=== PATIENT | male | born 1955 | race Caucasian/White ===

== ENCOUNTER 2018-03-10 13:28 | Emergency (ER) | payer OTHER ==
--- NOTE | 2018-03-10 14:36 | ED ---
General Adult HPI - General Chief complaint: Dizziness Stated complaint: Chest pain Time Seen by Provider: 03/10/18 13:30 Source: patient, RN notes reviewed Mode of arrival: wheelchair Limitations: no limitations - History of Present Illness Initial comments: This is a 63-year-old male presents emergency department stating that he comes in today because every time he stands up he is very dizzy. Patient states it started yesterday morning has continued on until today. Patient states he did have some sharp chest pain he states it felt like electroshock below his breasts on the left and radiated to the right it lasts about one second. Patient states she's had about 4 of those over a five-minute period and has never had any since per patient denies any difficulty breathing or shortness of breath per patient any palpitations. Patient denies abdominal pain patient denies nausea vomiting or diarrhea. Patient states she's very unsteady. Moves his head or stands up. Patient denies any history of vertigo. Patient denies headache patient denies any numbness or weakness. Patient denies any visual disturbance or speech disturbance. - Related Data Previous Rx's Medication Instructions Recorded Meclizine [Antivert] 25 mg PO TID #20 tab 03/10/18 Allergies Allergy/AdvReac Type Severity Reaction Status Date / Time No Known Allergies Allergy Verified 03/10/18 13:58 Review of Systems ROS Statement: Those systems with pertinent positive or pertinent negative responses have been documented in the HPI. ROS Other: All systems not noted in ROS Statement are negative. Past Medical History Past Medical History: No Reported History History of Any Multi-Drug Resistant Organisms: None Reported Past Surgical History: Orthopedic Surgery Additional Past Surgical History / Comment(s): hand Past Psychological History: No Psychological Hx Reported Smoking Status: Current every day smoker Past Alcohol Use History: None Reported Past Drug Use History: None Reported General Exam - General Exam Comments Initial Comments: GENERAL: Patient is well-developed and well-nourished. Patient is nontoxic and well- hydrated and is in mild distress. ENT: Neck is soft and supple. No significant lymphadenopathy is noted. Oropharynx is clear. Moist mucous membranes. Neck has full range of motion without eliciting any pain. EYES: The sclera were anicteric and conjunctiva were pink and moist. PULMONARY: Unlabored respirations. Good breath sounds bilaterally. No audible rales rhonchi or wheezing was noted. CARDIOVASCULAR: There is a regular rate and rhythm without any murmurs gallops or rubs. ABDOMEN: Soft and nontender with normal bowel sounds. No palpable organomegaly was noted. There is no palpable pulsatile mass. SKIN: Skin is clear with no lesions or rashes and otherwise unremarkable. NEUROLOGIC: Patient is alert and oriented x3. Cranial nerves II through XII are grossly intact. Motor and sensory are also intact. Normal speech, volume and content. Symmetrical smile. Cerebellar testing finger to nose bilaterally was normal MUSCULOSKELETAL: Normal extremities with adequate strength and full range of motion. No lower extremity swelling or edema. No calf tenderness. LYMPHATICS: No significant lymphadenopathy is noted PSYCHIATRIC: Normal psychiatric evaluation. Limitations: no limitations Course Vital Signs 03/10/18 03/10/18 03/10/18 13:33 14:00 16:00 Temperature 97.8 F Pulse Rate 63 59 L 67 Respiratory 18 19 18 Rate Blood Pressure 128/80 124/78 115/76 O2 Sat by Pulse 98 98 95 Oximetry 03/10/18 16:49 Temperature 98.8 F Pulse Rate Respiratory Rate Blood Pressure O2 Sat by Pulse Oximetry Medical Decision Making - Medical Decision Making EKG shows sinus bradycardia at a rate of 53 bpm MO interval is 132 QRS is 94 Q- T intervals 416 QTC is 390 per patient's EKG shows no ST segment elevation or depression or T wave abnormalities are noted. CT of the brain shows no acute abnormality. Chest x-ray shows no acute abnormality. Patient had Antivert and was able to ambulate but still felt a little dizzy but he did feel somewhat improved. - Lab Data Result diagrams: 03/10/18 13:55 03/10/18 13:55 Lab Results 03/10/18 03/10/18 03/10/18 Range/Units 13:55 13:55 13:55 WBC 6.1 (3.8-10.6) k/uL RBC 5.44 (4.30-5.90) m/uL Hgb 16.2 (13.0-17.5) gm/dL Hct 47.5 (39.0-53.0) % MCV 87.3 (80.0-100.0) fL MCH 29.7 (25.0-35.0) pg MCHC 34.1 (31.0-37.0) g/dL RDW 13.8 (11.5-15.5) % Plt Count 214 (150-450) k/uL Neutrophils % 60 % Lymphocytes % 28 % Monocytes % 6 % Eosinophils % 1 % Basophils % 1 % Neutrophils # 3.6 (1.3-7.7) k/uL Lymphocytes # 1.7 (1.0-4.8) k/uL Monocytes # 0.4 (0-1.0) k/uL Eosinophils # 0.1 (0-0.7) k/uL Basophils # 0.0 (0-0.2) k/uL PT (9.0-12.0) sec INR (<1.2) APTT (22.0-30.0) sec Sodium 138 (137-145) mmol/L Potassium 4.8 (3.5-5.1) mmol/L Chloride 105 (98-107) mmol/L Carbon Dioxide 27 (22-30) mmol/L Anion Gap 6 mmol/L BUN 17 (9-20) mg/dL Creatinine 0.95 (0.66-1.25) mg/dL Est GFR (CKD-EPI)AfAm >90 (>60 ml/min/1.73 sqM) Est GFR (CKD-EPI)NonAf 86 (>60 ml/min/1.73 sqM) Glucose 94 (74-99) mg/dL Calcium 9.1 (8.4-10.2) mg/dL Magnesium 2.0 (1.6-2.3) mg/dL Total Bilirubin 0.5 (0.2-1.3) mg/dL AST 27 (17-59) U/L ALT 26 (21-72) U/L Alkaline Phosphatase 53 (38-126) U/L Total Creatine Kinase 139 (55-170) U/L CK-MB (CK-2) 1.8 (0.0-2.4) ng/mL CK-MB (CK-2) Rel Index 1.3 Troponin I <0.012 (0.000-0.034) ng/mL Total Protein 7.2 (6.3-8.2) g/dL Albumin 4.2 (3.5-5.0) g/dL 03/10/18 Range/Units 13:55 WBC (3.8-10.6) k/uL RBC (4.30-5.90) m/uL Hgb (13.0-17.5) gm/dL Hct (39.0-53.0) % MCV (80.0-100.0) fL MCH (25.0-35.0) pg MCHC (31.0-37.0) g/dL RDW (11.5-15.5) % Plt Count (150-450) k/uL Neutrophils % % Lymphocytes % % Monocytes % % Eosinophils % % Basophils % % Neutrophils # (1.3-7.7) k/uL Lymphocytes # (1.0-4.8) k/uL Monocytes # (0-1.0) k/uL Eosinophils # (0-0.7) k/uL Basophils # (0-0.2) k/uL PT 9.7 (9.0-12.0) sec INR 0.9 (<1.2) APTT 24.0 (22.0-30.0) sec Sodium (137-145) mmol/L Potassium (3.5-5.1) mmol/L Chloride (98-107) mmol/L Carbon Dioxide (22-30) mmol/L Anion Gap mmol/L BUN (9-20) mg/dL Creatinine (0.66-1.25) mg/dL Est GFR (CKD-EPI)AfAm (>60 ml/min/1.73 sqM) Est GFR (CKD-EPI)NonAf (>60 ml/min/1.73 sqM) Glucose (74-99) mg/dL Calcium (8.4-10.2) mg/dL Magnesium (1.6-2.3) mg/dL Total Bilirubin (0.2-1.3) mg/dL AST (17-59) U/L ALT (21-72) U/L Alkaline Phosphatase (38-126) U/L Total Creatine Kinase (55-170) U/L CK-MB (CK-2) (0.0-2.4) ng/mL CK-MB (CK-2) Rel Index Troponin I (0.000-0.034) ng/mL Total Protein (6.3-8.2) g/dL Albumin (3.5-5.0) g/dL Disposition Clinical Impression: Vertigo Disposition: HOME SELF-CARE Condition: Good Instructions: Vertigo (ED) Prescriptions: Meclizine [Antivert] 25 mg PO TID #20 tab Is patient prescribed a controlled substance at d/c from ED?: No Referrals: Dario Almanzar DO [Primary Care Provider] - 1-2 days Time of Disposition: 16:35
[2018-03-10] MEDS ORDERED: MECLIZINE 25 MG TAB PO STA (14:45)
[2018-03-10] MEDS ORDERED: SODIUM CHLORIDE 0.9% 500 ML 500 ML IV STA (14:45)
[2018-03-10 15:18] LABS: Basophils % (A) 1 %; Eosinophils # (A) 0.1 k/uL (0-0.7); Eosinophils % (A) 1 %; HCT 47.5 % (39.0-53.0); HGB 16.2 gm/dL (13.0-17.5); Lymphocytes # (A) 1.7 k/uL (1.0-4.8); Lymphocytes % (A) 28 %; MCH 29.7 pg (25.0-35.0); MCHC 34.1 g/dL (31.0-37.0); MCV 87.3 fL (80.0-100.0); Mean Platelet Volume 7.3; Monocytes # (A) 0.4 k/uL (0-1.0); Monocytes % (A) 6 %; Neutrophils # (A) 3.6 k/uL (1.3-7.7); Neutrophils % (A) 60 %; Platelet Count 214 k/uL (150-450); RBC 5.44 m/uL (4.30-5.90); RDW 13.8 % (11.5-15.5); WBC 6.1 k/uL (3.8-10.6)
[2018-03-10 15:26] LABS: ALT 26 U/L (21-72); AST 27 U/L (17-59); Albumin 4.2 g/dL (3.5-5.0); Alkaline Phosphatase 53 U/L (38-126); Anion Gap 6 mmol/L; Blood Urea Nitrogen 17 mg/dL (9-20); Calcium 9.1 mg/dL (8.4-10.2); Carbon Dioxide 27 mmol/L (22-30); Chloride 105 mmol/L (98-107); Glucose 94 mg/dL (74-99); Potassium 4.8 mmol/L (3.5-5.1); Sodium 138 mmol/L (137-145); Total Bilirubin 0.5 mg/dL (0.2-1.3); Total Protein 7.2 g/dL (6.3-8.2)
[2018-03-10 15:31] LABS: INR 0.9 (<1.2); Prothrombin Time 9.7 sec (9.0-12.0)
[2018-03-10 15:39] LABS: Creatine Kinase 139 U/L (55-170)
--- NOTE | 2018-03-10 15:41 | CT ---
EXAMINATION TYPE: CT brain wo con DATE OF EXAM: 03/10/2018 COMPARISON: Prior CT brain dated 11/26/2012 HISTORY: Dizziness CT DLP: 1060.4 mGycm Automated exposure control for dose reduction was used. FINDINGS: There is no interval change. IMPRESSION: NORMAL NONCONTRAST HEAD CT.
--- NOTE | 2018-03-10 15:43 | XR ---
EXAMINATION TYPE: XR chest 2V DATE OF EXAM: 03/10/2018 COMPARISON: CT chest 04/25/2013 HISTORY: Dizziness and chest pain TECHNIQUE: Frontal and lateral views of the chest are obtained. FINDINGS: There is no focal air space opacity, pleural effusion, or pneumothorax seen. The cardiac silhouette size is within normal limits. The osseous structures are intact. There is underlying emp hysema. Interstitium is prominent. There are overlying cardiac leads. Prominent lung volumes are note d consistent with COPD. IMPRESSION: No acute cardiopulmonary process. Emphysema.
[2018-03-10 15:52] LABS: Creatine Kinase MB 1.8 ng/mL (0.0-2.4); Troponin I <0.012 ng/mL (0.000-0.034)
[2018-03-10 16:12] VITALS: BP 115/76; PULSE 67; RESP 18
[2018-03-10 16:50] VITALS: TEMP 98.8
== END 2018-03-10 16:58 | disposition home or self-care (01) ==
LOC: EC 13:28
DX: R42 Dizziness and giddiness (principal); R07.9 Chest pain, unspecified; R00.1 Bradycardia, unspecified; F17.200 Nicotine dependence, unspecified, uncomplicated
CPT/HCPCS: 36415; 70450; 71046; 80053; 82550; 82553; 83735; 84484; 85025; 85610; 85730; 93005; 96360; 99284

== ENCOUNTER 2019-03-11 09:44 | Inpatient (IN) | payer OTHER ==
[2019-03-11] MEDS ORDERED: MORPHINE SULFATE 2 MG/ML SYRINGE IVP STA (10:06)
[2019-03-11] MEDS ORDERED: IPRATROPIUM-ALBUTEROL 3 ML NEB INHALATION STA (10:06)
[2019-03-11] MEDS ORDERED: ASPIRIN 81 MG PO STA (10:11)
--- NOTE | 2019-03-11 10:14 | ED ---
General Adult HPI - General Chief complaint: Chest Pain Stated complaint: chest pain/pressure Time Seen by Provider: 03/11/19 09:57 Source: patient, RN notes reviewed Mode of arrival: ambulatory Limitations: no limitations - History of Present Illness Initial comments: 64-year-old male presents to the emergency department for a chief complaint of chest pain. Patient states that for the past 3 weeks he has had a cough associated with chest pain. States that the pain does worsen when he coughs. Patient states that he cannot seem to get rid of this cough. States it is productive in nature. States he has shortness of breath. Patient states he has felt congested and had ear pain as well. Patient admits to a 40 pack per year smoking history. No history of COPD however patient reports he has not seen his physician in over 15 years. Patient has no other complaints at this time including abdominal pain, nausea or vomiting, headache, or visual changes. - Related Data Home Medications Medication Instructions Recorded Confirmed No Known Home Medications 03/11/19 03/11/19 Allergies Allergy/AdvReac Type Severity Reaction Status Date / Time No Known Allergies Allergy Verified 03/11/19 11:47 Review of Systems ROS Statement: Those systems with pertinent positive or pertinent negative responses have been documented in the HPI. ROS Other: All systems not noted in ROS Statement are negative. Past Medical History Past Medical History: No Reported History History of Any Multi-Drug Resistant Organisms: None Reported Past Surgical History: Orthopedic Surgery Additional Past Surgical History / Comment(s): hand Past Psychological History: No Psychological Hx Reported Smoking Status: Current every day smoker Past Alcohol Use History: None Reported Past Drug Use History: None Reported General Exam Limitations: no limitations General appearance: alert, in no apparent distress Head exam: Present: atraumatic, normocephalic, normal inspection Eye exam: Present: normal appearance, PERRL, EOMI. Absent: scleral icterus, conjunctival injection, periorbital swelling ENT exam: Present: normal exam, normal oropharynx, mucous membranes moist, normal external ear exam Neck exam: Present: normal inspection, full ROM. Absent: tenderness, meningismus, lymphadenopathy Respiratory exam: Present: wheezes (minimal wheezing noted). Absent: respiratory distress, rales, rhonchi, stridor Cardiovascular Exam: Present: regular rate, normal rhythm, normal heart sounds. Absent: systolic murmur, diastolic murmur, rubs, gallop, clicks GI/Abdominal exam: Present: soft, normal bowel sounds. Absent: distended, tenderness, guarding, rebound, rigid Neurological exam: Present: alert Course Vital Signs 03/11/19 03/11/19 03/11/19 09:46 10:20 11:09 Temperature 97.9 F Pulse Rate 78 70 Respiratory 18 20 Rate Blood Pressure 128/76 O2 Sat by Pulse 98 Oximetry 03/11/19 11:13 Temperature Pulse Rate 76 Respiratory Rate Blood Pressure O2 Sat by Pulse Oximetry EKG Findings - EKG Comments: EKG Findings:: Normal sinus rhythm, ventricular rate 71, [place] interval 120, QTC 4 25 Medical Decision Making - Medical Decision Making Vitals are stable. CBC CMP unremarkable. Troponin negative. EKG unremarkable. Chest x-ray does show a new right hilar acute infiltrate. Follow-up to resolution advised due to masslike appearance. Given mild wheezing on exam patient likely experiencing COPD exacerbation given his 40 pack/year smoking history. Patient will be admitted for COPD exacerbation as well as pneumonia versus infiltrate. He was started on IV antibiotics. Pulmonology and cardiology consulted, troponin trending. - Lab Data Result diagrams: 03/11/19 10:30 03/11/19 10:30 Lab Results 03/11/19 03/11/19 03/11/19 Range/Units 10:30 10:30 10:30 WBC 8.8 (3.8-10.6) k/uL RBC 4.63 (4.30-5.90) m/uL Hgb 11.9 L (13.0-17.5) gm/dL Hct 37.2 L (39.0-53.0) % MCV 80.3 (80.0-100.0) fL MCH 25.7 (25.0-35.0) pg MCHC 32.0 (31.0-37.0) g/dL RDW 13.4 (11.5-15.5) % Plt Count 478 H (150-450) k/uL Neutrophils % 78 % Lymphocytes % 14 % Monocytes % 5 % Eosinophils % 1 % Basophils % 1 % Neutrophils # 6.9 (1.3-7.7) k/uL Lymphocytes # 1.3 (1.0-4.8) k/uL Monocytes # 0.4 (0-1.0) k/uL Eosinophils # 0.1 (0-0.7) k/uL Basophils # 0.1 (0-0.2) k/uL PT (9.0-12.0) sec INR (<1.2) APTT (22.0-30.0) sec Sodium 135 L (137-145) mmol/L Potassium 4.4 (3.5-5.1) mmol/L Chloride 102 (98-107) mmol/L Carbon Dioxide 26 (22-30) mmol/L Anion Gap 7 mmol/L BUN 8 L (9-20) mg/dL Creatinine 0.61 L (0.66-1.25) mg/dL Est GFR (CKD-EPI)AfAm >90 (>60 ml/min/1.73 sqM) Est GFR (CKD-EPI)NonAf >90 (>60 ml/min/1.73 sqM) Glucose 98 (74-99) mg/dL Calcium 8.5 (8.4-10.2) mg/dL Magnesium 1.8 (1.6-2.3) mg/dL Total Bilirubin 0.5 (0.2-1.3) mg/dL AST 30 (17-59) U/L ALT 27 (4-49) U/L Alkaline Phosphatase 116 (38-126) U/L Troponin I (0.000-0.034) ng/mL NT-Pro-B Natriuret Pep 208 pg/mL Total Protein 6.6 (6.3-8.2) g/dL Albumin 3.1 L (3.5-5.0) g/dL 03/11/19 03/11/19 Range/Units 10:30 10:30 WBC (3.8-10.6) k/uL RBC (4.30-5.90) m/uL Hgb (13.0-17.5) gm/dL Hct (39.0-53.0) % MCV (80.0-100.0) fL MCH (25.0-35.0) pg MCHC (31.0-37.0) g/dL RDW (11.5-15.5) % Plt Count (150-450) k/uL Neutrophils % % Lymphocytes % % Monocytes % % Eosinophils % % Basophils % % Neutrophils # (1.3-7.7) k/uL Lymphocytes # (1.0-4.8) k/uL Monocytes # (0-1.0) k/uL Eosinophils # (0-0.7) k/uL Basophils # (0-0.2) k/uL PT 10.7 (9.0-12.0) sec INR 1.0 (<1.2) APTT 26.9 (22.0-30.0) sec Sodium (137-145) mmol/L Potassium (3.5-5.1) mmol/L Chloride (98-107) mmol/L Carbon Dioxide (22-30) mmol/L Anion Gap mmol/L BUN (9-20) mg/dL Creatinine (0.66-1.25) mg/dL Est GFR (CKD-EPI)AfAm (>60 ml/min/1.73 sqM) Est GFR (CKD-EPI)NonAf (>60 ml/min/1.73 sqM) Glucose (74-99) mg/dL Calcium (8.4-10.2) mg/dL Magnesium (1.6-2.3) mg/dL Total Bilirubin (0.2-1.3) mg/dL AST (17-59) U/L ALT (4-49) U/L Alkaline Phosphatase (38-126) U/L Troponin I 0.013 (0.000-0.034) ng/mL NT-Pro-B Natriuret Pep pg/mL Total Protein (6.3-8.2) g/dL Albumin (3.5-5.0) g/dL Disposition Clinical Impression: Hilar density, COPD (chronic obstructive pulmonary disease), Chest pain Disposition: ADMITTED IP TO THIS HOSP Condition: Fair Is patient prescribed a controlled substance at d/c from ED?: No Referrals: Dario Almanzar DO [Primary Care Provider] - 1-2 days Time of Disposition: 11:49
[2019-03-11 10:54] LABS: Basophils # (A) 0.1 k/uL (0-0.2); Basophils % (A) 1 %; Eosinophils # (A) 0.1 k/uL (0-0.7); Eosinophils % (A) 1 %; HCT 37.2 % (39.0-53.0); HGB 11.9 gm/dL (13.0-17.5); Lymphocytes # (A) 1.3 k/uL (1.0-4.8); Lymphocytes % (A) 14 %; MCH 25.7 pg (25.0-35.0); MCV 80.3 fL (80.0-100.0); Mean Platelet Volume 6.8; Monocytes # (A) 0.4 k/uL (0-1.0); Monocytes % (A) 5 %; Neutrophils # (A) 6.9 k/uL (1.3-7.7); Neutrophils % (A) 78 %; Platelet Count 478 k/uL (150-450); RBC 4.63 m/uL (4.30-5.90); RDW 13.4 % (11.5-15.5); WBC 8.8 k/uL (3.8-10.6)
[2019-03-11 11:03] LABS: Partial Thromboplastin Time 26.9 sec (22.0-30.0); Prothrombin Time 10.7 sec (9.0-12.0)
[2019-03-11 11:04] LABS: ALT 27 U/L (4-49); AST 30 U/L (17-59); African American GFR (CKD) >90 (>60 ml/min/1.73 sqM); Albumin 3.1 g/dL (3.5-5.0); Alkaline Phosphatase 116 U/L (38-126); Anion Gap 7 mmol/L; Blood Urea Nitrogen 8 mg/dL (9-20); Calcium 8.5 mg/dL (8.4-10.2); Carbon Dioxide 26 mmol/L (22-30); Chloride 102 mmol/L (98-107); Glucose 98 mg/dL (74-99); Magnesium 1.8 mg/dL (1.6-2.3); Non-African American GFR(CKD) >90 (>60 ml/min/1.73 sqM); Potassium 4.4 mmol/L (3.5-5.1); Sodium 135 mmol/L (137-145); Total Bilirubin 0.5 mg/dL (0.2-1.3); Total Protein 6.6 g/dL (6.3-8.2)
--- NOTE | 2019-03-11 11:15 | XR ---
EXAMINATION TYPE: XR chest 2V DATE OF EXAM: 03/11/2019 COMPARISON: Chest x-ray March 10, 2018 HISTORY: Chest pain and cough for 3 weeks. TECHNIQUE: Frontal and lateral views of the chest are obtained. FINDINGS: There is Chronic emphysematous change with new right hilar opacity. There is persistent tiny right pleural ef fusion. Moderate biapical pleural/parenchymal scarring redemonstrated. The cardiac silhouette size is within normal limits. The osseous structures are intact. IMPRESSION: New right hilar acute infiltrate. Follow-up to resolution is advised due to masslike mary earance.
[2019-03-11] MEDS ORDERED: cefTRIAXone IN SWFI 1,000 MG/10 ML SYRINGE IVP STA (11:19)
[2019-03-11] MEDS ORDERED: AZITHROMYCIN 500 MG in SODIUM CHLORIDE 0.9% 250 ML IVPB STA (11:43)
[2019-03-11] MEDS ORDERED: PNEUMONIA PROTOCOL UTILIZED 1 EACH MISC PO PRN (11:43)
[2019-03-11] MEDS ORDERED: IPRATROPIUM-ALBUTEROL 3 ML NEB INHALATION PRN (11:43)
[2019-03-11] MEDS ORDERED: methylPREDNISolone SOD SUCCI 125 MG/2 ML VIAL IV STA (11:47)
[2019-03-11] MEDS ORDERED: HEPARIN SODIUM,PORCINE 5,000 UNIT/ML 1 ML VIAL IV STA (14:37)
[2019-03-11] MEDS ORDERED: HEPARIN SOD,PORK IN 0.45% NACL 25,000 UNIT in 0.45% NACL 1 250ML.BAG IV SCH (14:45)
[2019-03-11] MEDS ORDERED: NITROGLYCERIN SL TABS 0.4 MG TAB SUBLINGUAL PRN (15:14)
[2019-03-11] MEDS ORDERED: SODIUM CHLORIDE 0.9% 1,000 ML in EMPTY BAG 1 BAG IV ONE (15:14)
[2019-03-11] MEDS ORDERED: ALPRAZolam 0.25 MG TAB PO PRN (15:14)
[2019-03-11] MEDS: NICOTINE 21MG/24HR PATCH TRANSDERM SCH (15:33)
--- NOTE | 2019-03-11 15:37 | US ---
EXAMINATION TYPE: US carotid duplex BILAT DATE OF EXAM: 03/11/2019 COMPARISON: NONE CLINICAL HISTORY: chest pain. EXAM MEASUREMENTS: RIGHT: Peak Systolic Velocity (PSV) cm/sec ----- Right CCA: 88.6 ----- Right ICA: 77.6 ----- Right ECA: 69.8 ICA/CCA ratio: 0.9 RIGHT: End Diastole cm/sec ----- Right CCA: 21.5 ----- Right ICA: 32.5 ----- Right ECA: 9.9 LEFT: Peak Systolic Velocity (PSV) cm/sec ----- Left CCA: 73.1 ----- Left ICA: 110.5 ----- Left ECA: 104.5 ICA/CCA ratio: 1.5 LEFT: End Diastole cm/sec ----- Left CCA: 20.7 ----- Left ICA: 45.7 ----- Left ECA: 16.2 VERTEBRALS (direction of flow): Right Vertebral: Antegrade Left Vertebral: Antegrade Rhythm: Normal No elevated velocities, no significant stenosis. Grayscale, color and spectral Doppler performed of the carotid arteries. Waveform analysis does not s how significant stenosis of the internal carotid arteries. IMPRESSION: No hemodynamic significant stenosis of the proximal internal carotid arteries by Doppler criteria, an indirect measurement of carotid stenosis
--- NOTE | 2019-03-11 16:34 | P.CNPUL ---
History of Present Illness Consult date: 03/11/19 Reason for consult: dyspnea, cough, pneumonia, abnormal CXR/CT Chief complaint: Shortness of breath for most 2-3 weeks History of present illness: This is a 64-year-old male who was seen eval examined in the ER, patient has three-week history of increased shortness breath cough and congestion and feeling of heaviness in the chest came into the hospital for further evaluation patient also has a long-standing history of COPD emphysema and smoker, he smoked about [id number]-year, admit x-ray suggestive of the right hilar masslike infiltrate Review of Systems All systems: negative Past Medical History Past Medical History: No Reported History History of Any Multi-Drug Resistant Organisms: None Reported Past Surgical History: Orthopedic Surgery Additional Past Surgical History / Comment(s): hand Past Psychological History: No Psychological Hx Reported Smoking Status: Current every day smoker Past Alcohol Use History: None Reported Past Drug Use History: None Reported Medications and Allergies Home Medications Medication Instructions Recorded Confirmed Type No Known Home Medications 03/11/19 03/11/19 History Allergies Allergy/AdvReac Type Severity Reaction Status Date / Time No Known Allergies Allergy Verified 03/11/19 11:47 Physical Exam Vitals: Vital Signs Temp Pulse Resp BP Pulse Ox 03/11/19 15:40 91 18 116/80 96 03/11/19 12:59 80 18 123/67 97 03/11/19 11:58 80 18 116/80 97 03/11/19 11:13 76 03/11/19 11:09 70 03/11/19 10:20 20 03/11/19 09:46 97.9 F 78 18 128/76 98 Intake and Output 03/11/19 03/11/19 03/11/19 06:59 14:59 22:59 Intake Total 10 Balance 10 Intake: IV 10 Invasive Line 1 10 Other: Weight 65.771 kg - Constitutional General appearance: average body habitus, disheveled, mild distress - EENT Eyes: EOMI, PERRLA, normal appearance ENT: normal oropharynx Ears: bilateral: normal - Neck Neck: normal ROM Carotids: bilateral: upstroke normal Thyroid: bilateral: normal size - Respiratory Respiratory: bilateral: diminished, wheezing (Fine expiratory) - Cardiovascular Rhythm: regular Heart sounds: normal: S1, S2 - Gastrointestinal General gastrointestinal: normal bowel sounds - Integumentary Integumentary: normal turgor - Neurologic Neurologic: CNII-XII intact - Musculoskeletal Musculoskeletal: gait normal, generalized weakness, strength equal bilaterally - Psychiatric Psychiatric: A&O x's 3, appropriate affect Results - Laboratory Findings CBC and BMP: 03/11/19 10:30 03/11/19 10:30 PT/INR, D-dimer PT 10.7 sec (9.0-12.0) 03/11/19 10:30 INR 1.0 (<1.2) 03/11/19 10:30 Abnormal lab findings: Abnormal Labs 03/11/19 03/11/19 10:30 10:30 Hgb 11.9 L Hct 37.2 L Plt Count 478 H Sodium 135 L BUN 8 L Creatinine 0.61 L Albumin 3.1 L - Diagnostic Findings Chest x-ray: report reviewed, image reviewed Assessment and Plan Assessment: Right perihilar pneumonia Right-sided hilar mass cannot be excluded End-stage lung disease second to severe COPD emphysema Active smoking and nicotine abuse Plan: Broad-spectrum IV antibiotics Breathing treatments IV steroids Obtain computed tomography scan of the chest Further recommendations pending plan of care as per clinical response of the patient Time with Patient: Greater than 30
--- NOTE | 2019-03-11 18:00 | CT ---
EXAMINATION TYPE: CT angio chest DATE OF EXAM: 03/11/2019 COMPARISON: None HISTORY: Shortness of breath and cough. CT DLP: 256.1 mGycm Automated exposure control for dose reduction was used. CONTRAST: Performed with IV Contrast, patient injected with 100 mL of Isovue 300. There are 3-D post processed images. There is diffuse pulmonary emphysema with bullous disease at the lung apices. There is spiculated 5 x 2 cm infiltrate in the left upper lobe extending to the left lung apex. There is extensive masslike consolidation at the right pulmonary hilum. This extends into the subcarinal region. There is extensi ve paratracheal adenopathy. There is left side bronchial adenopathy with lymph nodes up to 2 cm. Ther e is mediastinal adenopathy with lymph nodes up to 3 cm. There are multiple masslike infiltrates in t he right lung in the right upper lobe and to a lesser extent the right lower lobe that measure up to 2.5 cm. I see no filling defects in the pulmonary arteries. There are bilateral adrenal masses that m easure up to 3.6 cm. Thoracic spine is intact. Ribs appear intact. I see no focal bone destruction. IMPRESSION: No evidence of pulmonary embolism. Extensive masslike consolidation at the right pulmonary hilum with multiple satellite masses in the r ight lung is suggestive of malignancy. Extensive mediastinal and bronchial adenopathy. 3.6 cm left ad renal mass suggestive of metastatic disease. 2.5 cm right adrenal mass suggestive of metastatic disea se. Pulmonary emphysema.
[2019-03-11 18:02] LABS: Glucose,Whole Blood 129 mg/dL (75-99)
--- NOTE | 2019-03-11 19:47 | CONS ---
CONSULTATION Denis Santos is a 64-year-old gentleman who smokes more than one pack daily. He also has history of being very noncompliant with medical advice. He has not seen a physician for several years. He came into the emergency room complaining of discomfort in his chest. The quality of the pain initially seemed atypical. He also has a 3-week history of cough and then pain occurred with that, but even without cough he seems to have heaviness and pressure when he walks, and this seems to be getting worse lately. I was able to elicit this history by carefully discussing with the patient regarding his symptom pattern. For 3 weeks, he has had cough with productive sputum. Then it became nonproductive. He had pain with cough. Now he has pain with activity also. He denies any palpitations, syncope or near-syncope but does have lightheadedness with his coughing bouts. He has shortness of breath with activity. He has not seen a physician in several years. PAST MEDICAL HISTORY: Unremarkable for any documented illness, but the patient is a smoker. He has had some orthopedic surgery and probably has significant COPD. No evidence of any documented diabetes, myocardial infarction, CVA or hypertension. ALLERGIES: NONE. MEDICATIONS: None. PHYSICAL EXAMINATION: Blood pressure is 120/70, pulse rate 80 per minute. HEENT unremarkable. Fundus was not examined by me. Neck is supple. There is a left carotid bruit audible. Lungs reveal diminished air entry in bilateral lung lott. Heart exam reveals S1, S2 heard normally. No significant murmurs. LUNGS: Bilateral diminished air entry. Abdomen is soft, nontender. Bowel sounds are normal. Lower extremities reveal diminished pulses. No edema. Central nervous system is normal. EKG revealed sinus mechanism, no acute changes. LABORATORY DATA: Initial troponin is normal. BNP is normal. He is negative for influenza. Renal function is normal. Hemoglobin is 11.9. The patient also had CT angiography that was performed, and this study revealed no evidence of any pulmonary embolism. There was a 2.5 cm right adrenal mass noted. The patient also had a masslike consolidation in the right pulmonary hilum with multiple satellite masses in the right lung, raising the possibility of malignancy. There is lymphadenopathy of the mediastinal nodes of up to 3 cm. IMPRESSION: 1. Chest pain syndrome; seems musculoskeletal but cannot exclude angina. Patient has history of smoking. 2. Persistent cough in a smoker. Rule out any pulmonary malignancy with abnormal CT angio. RECOMMENDATIONS: I am recommending that we will initiate him on beta blockers. Await further input from Pulmonology. Place him on IV heparin for now. Add a small dose of statin, beta marium, IV heparin, and based on clinical course, I will make further recommendations. I will tentatively schedule him for a cardiac cath and will discuss with his auto tester Dr. Lorenzana and then make further recommendations. I will also place him on a nicotine patch. Discussed my thoughts in detail with the patient. Thank you very much for the consult. MMODL / IJN: [id number] /
--- NOTE | 2019-03-11 20:17 | CONS ---
CONSULTATION ADDENDUM TO CONSULTATION: I am dictating this addendum after due discussion with Dr. Lorenzana. I reviewed the CT scan information as well as the chest x-ray images. The patient's clinical presentation is suggestive of angina. He has had some symptoms of chest pressure with physical activity, but the clinical picture suggests a pulmonary malignancy and there is a question of adrenal metastasis also. Given this, we will defer cardiac cath for now, proceed with antibiotics, treat the existing pneumonia. Consider bronchoscopy after a course of antibiotics and workup for malignancy, which may include a PET scan as an outpatient. Based on the clinical course and CT info, we will defer cardiac cath, but for now we will treat him empirically with beta blockers and go from there. I discussed my thoughts again with the patient. We will therefore cancel cardiac catheterization. PATRIC / DAVID: [id number] / MTDD
[2019-03-11] MEDS ORDERED: ATORVASTATIN 20 MG TAB PO SCH (21:00)
[2019-03-11] MEDS: METOPROLOL TARTRATE 12.5 MG TAB PO SCH (21:18)
--- NOTE | 2019-03-11 21:43 | P.HPIM ---
History of Present Illness H&P Date: 03/11/19 Chief Complaint: Cough History of presenting complaint: This is a pleasant 64-year-old patient of Dr. Almanzar. Long-standing smoker. She has had a cough for close to 3 weeks. Bringing up a lot of sputum yellow color. Has had some fever off and on. Decreased appetite, short of breath and wheezing. When he coughs he develops pain below the rib cage. Feeling tired rundown. Admitted for the same. The chest pain is having is only with coughing. Otherwise. Review of systems: GEN.: Tired rundown some fever EYES: None HEENT: None NECK: None RESPIRATORY: As above CARDIOVASCULAR: None GASTROINTESTINAL: None GENITOURINARY: None MUSCULOSKELETAL: Pain in the knees LYMPHATICS: None HEMATOLOGICAL: None PSYCHIATRY: None NEUROLOGICAL: None Past medical history to include: Arthritis of the knees Social history: Smokes an average of pack and half a day for close to 47 years. . Retired from construction work. The back drinking alcohol 10 years ago. Family history: Reviewed, noncontributory to presentation Physical examination: VITAL SIGNS: 97.9, 78, 18, 128/66, 98% room air GENERAL: BMI 23.4, sitting up short of breath tired. EYES: Pupils equal. Conjunctiva palel. HEENT: External appearance of nose and ears normal, oral cavity grossly normal. NECK: JVD not raised; masses not palpable. HEART: First and second heart sounds are normal; no edema. LUNGS: Respiratory rate increased, diminished breath sounds prolonged expiration. ABDOMEN: Soft, nontender, liver spleen not palpable, no masses palpable. PSYCH: Alert and oriented x3; mood and affect normal. NEUROLOGICAL: Cranial nerves grossly intact; no facial asymmetry, power and se nsation grossly intact. LYMPHATICS: No lymph nodes palpable in the axilla and neck INVESTIGATIONS, reviewed in the clinical context: White count 8.8 hemoglobin 11.9 platelets. Eat potassium 4.4 but at creatinine 0.6 once Troponin I 0.013, 0.012 Influenza A and B both negative Albumin 3.1 EKG tracing personally reviewed by me-normal sinus rhythm Chest x-ray film personally reviewed by me-infiltrate multiple hyperinflation CT chest-negative for PE mass of multiple lymph nodes Assessment: -Multilobar pneumonia, cannot use rule out postobstructive pneumonia, suspected gram-negative organism -Right lung mass with multiple liters involvement strongly suspicious of malignancy in a smoker -Primary or strength redness of the knees -Mild protein calorie malnutrition from decreased oral intake -Advanced COPD exacerbation acute in a smoker -Chronic nicotine dependence patient cigarette smoker Plan: Patient started and IV ceftriaxone and Zithromax. Nicotine patch. Consultations made to pulmonary and cardiology. Patient chest pain appears to be pleuritic secondary to musculoskeletal pain from coughing. Patient supportively to bronchoscopy for tissue biopsy. Care was discussed with the patient question were answered. Past Medical History Past Medical History: No Reported History History of Any Multi-Drug Resistant Organisms: None Reported Past Surgical History: Orthopedic Surgery Additional Past Surgical History / Comment(s): hand Past Psychological History: No Psychological Hx Reported Smoking Status: Current every day smoker Past Alcohol Use History: None Reported Past Drug Use History: None Reported Medications and Allergies Home Medications Medication Instructions Recorded Confirmed Type No Known Home Medications 03/11/19 03/11/19 History Allergies Allergy/AdvReac Type Severity Reaction Status Date / Time No Known Allergies Allergy Verified 03/11/19 11:47 Physical Exam Vitals: Vital Signs Temp Pulse Pulse Resp BP BP Pulse Ox 03/11/19 20:00 80 19 127/89 98 03/11/19 17:58 81 18 106/78 97 03/11/19 15:40 91 18 116/80 96 03/11/19 12:59 80 18 123/67 97 03/11/19 11:58 80 18 116/80 97 03/11/19 11:13 76 03/11/19 11:09 70 03/11/19 10:20 20 03/11/19 09:46 97.9 F 78 18 128/76 98 Intake and Output 03/11/19 03/11/19 03/11/19 06:59 14:59 22:59 Intake Total 10 Balance 10 Intake: IV 10 Invasive Line 1 10 Other: # Voids 1 Weight 65.771 kg Results CBC & Chem 7: 03/11/19 10:30 03/11/19 10:30 Labs: Abnormal Lab Results - Last 24 Hours (Table) 03/11/19 03/11/19 03/11/19 Range/Units 10:30 10:30 18:01 Hgb 11.9 L (13.0-17.5) gm/dL Hct 37.2 L (39.0-53.0) % Plt Count 478 H (150-450) k/uL Sodium 135 L (137-145) mmol/L BUN 8 L (9-20) mg/dL Creatinine 0.61 L (0.66-1.25) mg/dL POC Glucose (mg/dL) 129 H (75-99) mg/dL Albumin 3.1 L (3.5-5.0) g/dL Thrombosis Risk Factor Assmnt - Choose All That Apply Any of the Below Risk Factors Present?: Yes Each Factor Represents 1 point: Abnormal pulmonary function (COPD) Other Risk Factors: Yes Each Risk Factor Represents 2 Points: Age 61-74 years Other congenital or acquired thrombophilia - If yes, enter type in comment: No Thrombosis Risk Factor Assessment Total Risk Factor Score: 3 Thrombosis Risk Factor Assessment Level: Moderate Risk
[2019-03-11] MEDS: BUDESONIDE 1 MG/2 ML NEBU INHALATION SCH (23:11)
[2019-03-11] MEDS: IPRATROPIUM-ALBUTEROL 3 ML NEB INHALATION SCH ×2 (23:11→23:13)
[2019-03-12] MEDS: IPRATROPIUM-ALBUTEROL 3 ML NEB INHALATION SCH ×5 (04:09→20:20)
[2019-03-12] MEDS ORDERED: ATORVASTATIN 80 MG TAB PO ONE (06:00)
[2019-03-12] MEDS ORDERED: ASPIRIN 325 MG TAB PO ONE (06:00)
[2019-03-12] MEDS: BUDESONIDE 1 MG/2 ML NEBU INHALATION SCH ×2 (07:10→20:20)
[2019-03-12] MEDS: NICOTINE 21MG/24HR PATCH TRANSDERM SCH (08:32)
[2019-03-12] MEDS: AZITHROMYCIN 500 MG TAB PO SCH (08:32)
--- NOTE | 2019-03-12 12:01 | ECHOF ---
Referral Reason:chest pain MEASUREMENTS -------- HEIGHT: 167.6 cm WEIGHT: 65.8 kg BP: 110/70 RVIDd: 3.9 cm (< 3.3) IVSd: 0.6 cm (0.6 - 1.1) LVIDd: 4.7 cm (3.9 - 5.3) LVPWd: 1.1 cm (0.6 - 1.1) IVSs: 1.0 cm LVIDs: 2.7 cm LVPWs: 1.5 cm LAESV Index (A-L): 23.16 ml/m Ao Diam: 3.1 cm (2.0 - 3.7) AV Cusp: 1.8 cm (1.5 - 2.6) MV EXCURSION: 15.792 mm (> 18.000) MV EF SLOPE: 73 mm/s (70 - 150) EPSS: 0.9 cm MV E Yousuf: 0.62 m/s MV DecT: 232 ms MV A Yousuf: 0.86 m/s MV E/A Ratio: 0.72 RAP: 20.00 mmHg RVSP: 51.39 mmHg FINDINGS -------- Sinus rhythm with extra systolic beats. This was a technically adequate study. The left ventricular size is normal. Left ventricular wall thickness is normal. Overall left vent ricular systolic function is low-normal with, an EF between 50 - 55 %. The right ventricle is moderately enlarged. Normal LA size by volume 22+/-6 ml/m2. The right atrium is mildly enlarged. Interatrial and interventricular septum intact. There is no evidence of aortic regurgitation. There is no evidence of aortic stenosis. There is trace mitral regurgitation. Moderate tricuspid regurgitation present. There is moderate pulmonary hypertension. The right lyndsey tricular systolic pressure, as measured by Doppler, is 51.39mmHg. There is no pulmonic regurgitation present. The aortic root size is normal. The inferior vena cava is dilated with no significant inspiratory collapse which is consistent estima dede right atrial pressure of >20 mmHg. There is a trivial pericardial effusion present. CONCLUSIONS -------- 1. Sinus rhythm with extra systolic beats. 2. This was a technically adequate study. 3. The left ventricular size is normal. 4. Left ventricular wall thickness is normal. 5. Overall left ventricular systolic function is low-normal with, an EF between 50 - 55 %. 6. The right ventricle is moderately enlarged. 7. Normal LA size by volume 22+/-6 ml/m2. 8. The right atrium is mildly enlarged. 9. Interatrial and interventricular septum intact. 10. There is no evidence of aortic regurgitation. 11. There is no evidence of aortic stenosis. 12. There is trace mitral regurgitation. 13. Moderate tricuspid regurgitation present. 14. There is moderate pulmonary hypertension. 15. The right ventricular systolic pressure, as measured by Doppler, is 51.39mmHg. 16. There is no pulmonic regurgitation present. 17. The aortic root size is normal. 18. The inferior vena cava is dilated with no significant inspiratory collapse which is consistent es timated right atrial pressure of >20 mmHg. 19. There is a trivial pericardial effusion present. GRADER PATROL: Lisa Collier RDCS
--- NOTE | 2019-03-12 12:27 | PN ---
PROGRESS NOTE Mr. Santos was seen by me yesterday in the ER. I initially considered cardiac cath, but his CAT scan is abnormal. There is pulmonary malignancy. Therefore, we will treat him with antibiotics and consider bronchoscopy later on. Troponins are normal. He is not having much chest discomfort today. Vital signs are stable, no JVD. S1-S2 heard normally. Scattered rhonchi. Diminished air entry. Rales in the right base. Abdomen and lower extremity exam unchanged. Plan is to continue current medications and I will see him as needed. Once he is more stabilized, we will revisit the cardiac issue. For now, the primary importance is to treat his pneumonia/bronchitis and consider bronchoscopy which Dr. Lorenzana will coordinate. MMODL / IJN: [id number] /
[2019-03-12] MEDS: METOPROLOL TARTRATE 12.5 MG TAB PO SCH ×2 (12:35→20:40)
--- NOTE | 2019-03-12 13:59 | P.PN ---
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 Active smoking and nicotine abuse 03/12/2019, patient seen eval reexamined during the rounds labs reviewed medications reviewed care plan discussed with the patient and present at bedside, patient remains on antibiotics breathing treatments steroids, computed tomography scan of the chest has been reviewed findings discussed with the patient, patient has extensive bilateral lung nodules and masses in addition large right sided perihilar mass is present as well highly suspicious of neoplastic process patient could have a component of postobstructive pneumonia as well will continue the antibiotics plan to do bronchoscopy on This is a 64-year-old male who was seen eval examined in the ER, patient has three-week history of increased shortness breath cough and congestion and feeling of heaviness in the chest came into the hospital for further evaluation patient also has a long-standing history of COPD emphysema and smoker, he smoked about 90-24-rwzt-year, admit x-ray suggestive of the right hilar masslike infiltrate Objective - Vital Signs Vital signs: Vital Signs Temp 98.1 F 03/12/19 08:00 Pulse 90 03/12/19 12:00 Resp 16 03/12/19 12:00 BP 110/89 03/12/19 12:00 Pulse Ox 94 L 03/12/19 12:00 Intake & Output 03/11/19 03/12/19 03/12/19 18:59 06:59 18:59 Intake Total 10 58.408 86.163 Balance 10 58.408 86.163 Weight 65.771 kg 65.4 kg Intake: IV 10 Invasive Line 1 10 Intake, IV Titration 58.408 86.163 Amount Heparin Sod,Pork in 0.45% 58.408 86.163 NaCl 25,000 unit In 0.45 % NaCl 1 250ml.bag @ 12 UNITS/KG/HR 7.893 mls/hr IV .Q24H [facility] Rx#: [id number] Oral 0 Other: Voiding Method Toilet Toilet Urinal Urinal # Voids 1 - Exam - Constitutional General appearance: average body habitus, disheveled, mild distress - EENT Eyes: EOMI, PERRLA, normal appearance ENT: normal oropharynx Ears: bilateral: normal - Neck Neck: normal ROM Carotids: bilateral: upstroke normal Thyroid: bilateral: normal size - Respiratory Respiratory: bilateral: diminished, wheezing (Fine expiratory) - Cardiovascular Rhythm: regular Heart sounds: normal: S1, S2 - Gastrointestinal General gastrointestinal: normal bowel sounds - Integumentary Integumentary: normal turgor - Neurologic Neurologic: CNII-XII intact - Musculoskeletal Musculoskeletal: gait normal, generalized weakness, strength equal bilaterally - Psychiatric Psychiatric: A&O x's 3, appropriate affect - Labs CBC & Chem 7: 03/11/19 10:30 03/11/19 10:30 Labs: Abnormal Lab Results - Last 24 Hours (Table) 03/11/19 Range/Units 18:01 POC Glucose (mg/dL) 129 H (75-99) mg/dL Microbiology - Last 24 Hours (Table) 03/12/19 07:29 Gram Stain - Preliminary Sputum Sputum Culture - Preliminary Assessment and Plan Assessment: Right perihilar pneumonia Right-sided hilar mass and multiple bilateral pulmonary nodules neoplasm cannot be excluded 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
--- NOTE | 2019-03-12 18:35 | XR ---
EXAMINATION TYPE: XR chest 2V DATE OF EXAM: 03/12/2019 COMPARISON: Yesterday HISTORY: Pneumonia TECHNIQUE: 2 views FINDINGS: There is 9 cm area of masslike consolidation at the right pulmonary hilum. There is infiltr ate extending to the right lateral chest wall. The left lung is fairly clear. Heart size is normal. T here is no heart failure. There is slight blunting right costophrenic angle. IMPRESSION: Right perihilar consolidation unchanged. Normal heart.
[2019-03-12] MEDS: HEPARIN SODIUM,PORCINE 5,000 UNIT/ML 1 ML VIAL SQ SCH (20:41)
[2019-03-12] MEDS: ALPRAZolam 0.5 MG TAB PO PRN (22:45)
--- NOTE | 2019-03-12 22:46 | P.PN ---
Progress Note - Text Progress Note Date: 03/12/19 Chief Complaint: Cough Interval history: This is a pleasant 64-year-old patient of Dr. Almanzar. Long-standing smoker. She has had a cough for close to 3 weeks. Bringing up a lot of sputum yellow color. Has had some fever off and on. Decreased appetite, short of breath and wheezing. When he coughs he develops pain below the rib cage. Feeling tired rundown. Admitted for the same. The chest pain is having is only with coughing. Otherwise. Admitted with multilobar pneumonia, right lung mass with metastatic lymphadenopathy, acute COPD exacerbation Today-cough is slightly better. Decreased wheezing. Short of breath. Very anxious about his new diagnosis. at the bedside. Did tolerate some diet. Review of systems: Was done for constitutional, cardiovascular, GI, pulmonary. relevant finding as above Active Medications Albuterol/Ipratropium (Duoneb 0.5 Mg-3 Mg/3 Ml Soln) 3 ml INHALATION RT-Q4H PRN PRN Reason: shortness of breath Albuterol/Ipratropium (Duoneb 0.5 Mg-3 Mg/3 Ml Soln) 3 ml INHALATION RT-Q4H [facility] Last Admin: 03/12/19 20:20 Dose: 3 ml Documented by: Alprazolam (Xanax) 0.25 mg PO Q6HR PRN PRN Reason: Mild Anxiety Alprazolam (Xanax) 0.5 mg PO Q6HR PRN PRN Reason: Moderate Anxiety Aspirin (Aspirin) 81 mg PO DAILY [facility] Atorvastatin Calcium (Lipitor) 20 mg PO HS [facility] Azithromycin (Zithromax) 500 mg PO DAILY [facility] Last Admin: 03/12/19 08:32 Dose: 500 mg Documented by: Budesonide (Pulmicort) 1 mg INHALATION RT-BID [facility] Last Admin: 03/12/19 20:20 Dose: 1 mg Documented by: Heparin Sodium (Porcine) (Heparin) 5,000 unit SQ Q12HR [facility] Last Admin: 03/12/19 20:41 Dose: 5,000 unit Documented by: Ceftriaxone Sodium 1 gm/ (Sodium Chloride) 50 mls @ 100 mls/hr IVPB Q24HR [facility] Stop: 03/15/19 09:01 Last Admin: 03/12/19 08:32 Dose: 100 mls/hr Documented by: Metoprolol Tartrate (Lopressor) 12.5 mg PO BID [facility] Last Admin: 03/12/19 20:40 Dose: 12.5 mg Documented by: Miscellaneous Information (Pneumonia Protocol Utilized) 1 each PO ONCE PRN PRN Reason: Per Protocol Nicotine (Habitrol 21mg/24hr Patch) 1 patch TRANSDERM DAILY [facility] Last Admin: 03/12/19 08:32 Dose: 1 patch Documented by: Nitroglycerin (Nitrostat) 0.4 mg SUBLINGUAL Q5M PRN PRN Reason: Chest Pain Physical examination: VITAL SIGNS:98.1, 66, 16, 108/64,94% room air GENERAL: sitting at the edge of bed, slightly breathing better EYES: Pupils equal. Conjunctiva palel. HEENT: External appearance of nose and ears normal, oral cavity grossly normal. NECK: JVD not raised; masses not palpable. HEART: First and second heart sounds are normal; no edema. LUNGS: Respiratory rate increased, diminished breath sounds prolonged expiration. ABDOMEN: Soft, nontender, liver spleen not palpable, no masses palpable. PSYCH: Alert and oriented x3; mood and affect anxious. INVESTIGATIONS, reviewed in the clinical context: White count 8.8 hemoglobin 11.9 platelets. Eat potassium 4.4 but at creatinine 0.6 once Troponin I 0.013, 0.012 Influenza A and B both negative Albumin 3.1 EKG tracing personally reviewed by me-normal sinus rhythm Chest x-ray film personally reviewed by me-infiltrate multiple hyperinflation CT chest-negative for PE mass of multiple lymph nodes Assessment: -Multilobar pneumonia, cannot use rule out postobstructive pneumonia, suspected gram-negative organism, slow to respond -Right lung mass with multiple lymph nodes involvement strongly suspicious of malignancy in a smoker -Primary osteoarthritis of the knees -Mild protein calorie malnutrition from decreased oral intake -Advanced COPD exacerbation acute in a smoker, slow to respond -Chronic nicotine dependence patient cigarette smoker Plan: Patient started and IV ceftriaxone and Zithromax. discussed the above findings with the patient and the . there anxious about the whole picture. Patient did bronchoscopy down the road. Other medications to continue. IV steroids.
[2019-03-13] MEDS: IPRATROPIUM-ALBUTEROL 3 ML NEB INHALATION SCH ×7 (00:24→23:50)
[2019-03-13] MEDS: methylPREDNISolone SOD SUCCI 40 MG/ML 1 ML VIAL IV SCH ×4 (00:28→23:30)
[2019-03-13 06:31] LABS: Glucose,Whole Blood 132 mg/dL (75-99)
[2019-03-13] MEDS: BUDESONIDE 1 MG/2 ML NEBU INHALATION SCH ×2 (07:16→19:35)
[2019-03-13] MEDS: INSULIN ASPART (NovoLOG) 100 UNIT/ML VIAL SQ SCH ×4 (08:02→23:29)
[2019-03-13] MEDS: ASPIRIN 81 MG PO SCH (08:19)
[2019-03-13] MEDS: HEPARIN SODIUM,PORCINE 5,000 UNIT/ML 1 ML VIAL SQ SCH ×2 (08:19→20:22)
[2019-03-13] MEDS: AZITHROMYCIN 500 MG TAB PO SCH (08:19)
[2019-03-13] MEDS: METOPROLOL TARTRATE 12.5 MG TAB PO SCH ×2 (08:19→20:22)
[2019-03-13] MEDS: NICOTINE 21MG/24HR PATCH TRANSDERM SCH (08:19)
[2019-03-13 13:29] LABS: Glucose,Whole Blood 112 mg/dL (75-99)
--- NOTE | 2019-03-13 14:54 | P.PN ---
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 Active smoking and nicotine abuse 03/13/2019, patient seen eval examined labs reviewed medications reviewed computed tomography scan finding reviewed with the patient as well as his sister at length, patient is scheduled for bronchoscopy tomorrow procedure explained to patient along with side effects complications and benefits alternatives 03/12/2019, patient seen eval reexamined during the rounds labs reviewed medications reviewed care plan discussed with the patient and present at bedside, patient remains on antibiotics breathing treatments steroids, computed tomography scan of the chest has been reviewed findings discussed with the patie nt, patient has extensive bilateral lung nodules and masses in addition large right sided perihilar mass is present as well highly suspicious of neoplastic process patient could have a component of postobstructive pneumonia as well will continue the antibiotics plan to do bronchoscopy on This is a 64-year-old male who was seen eval examined in the ER, patient has three-week history of increased shortness breath cough and congestion and feeling of heaviness in the chest came into the hospital for further evaluation patient also has a long-standing history of COPD emphysema and smoker, he smoked about 03-70-crhh-year, admit x-ray suggestive of the right hilar masslike infiltrate Objective - Vital Signs Vital signs: Vital Signs Temp 99.2 F 03/13/19 08:00 Pulse 77 03/13/19 12:00 Resp 16 03/13/19 12:00 BP 102/58 03/13/19 12:00 Pulse Ox 92 L 03/13/19 12:00 Intake & Output 03/12/19 03/13/19 03/13/19 18:59 06:59 18:59 Intake Total 446.163 720 Balance 446.163 720 Weight 63.6 kg Intake: Intake, IV Titration 86.163 Amount Heparin Sod,Pork in 0.45% 86.163 NaCl 25,000 unit In 0.45 % NaCl 1 250ml.bag @ 12 UNITS/KG/HR 7.893 mls/hr IV .Q24H [facility] Rx#: [id number] Oral 360 720 Other: Voiding Method Toilet Toilet Toilet Urinal Urinal Urinal # Voids 1 1 - Exam - Constitutional General appearance: average body habitus, disheveled, mild distress - EENT Eyes: EOMI, PERRLA, normal appearance ENT: normal oropharynx Ears: bilateral: normal - Neck Neck: normal ROM Carotids: bilateral: upstroke normal Thyroid: bilateral: normal size - Respiratory Respiratory: bilateral: diminished, wheezing (Fine expiratory) - Cardiovascular Rhythm: regular Heart sounds: normal: S1, S2 - Gastrointestinal General gastrointestinal: normal bowel sounds - Integumentary Integumentary: normal turgor - Neurologic Neurologic: CNII-XII intact - Musculoskeletal Musculoskeletal: gait normal, generalized weakness, strength equal bilaterally - Psychiatric Psychiatric: A&O x's 3, appropriate affect - Labs CBC & Chem 7: 03/11/19 10:30 03/11/19 10:30 Labs: Abnormal Lab Results - Last 24 Hours (Table) 03/13/19 03/13/19 Range/Units 06:29 13:09 POC Glucose (mg/dL) 132 H 112 H (75-99) mg/dL Microbiology - Last 24 Hours (Table) 03/11/19 11:58 Blood Culture - Preliminary Blood No Growth after 48 hours 03/12/19 07:29 Gram Stain - Preliminary Sputum Sputum Culture - Preliminary Assessment and Plan Assessment: Right perihilar pneumonia Right-sided hilar mass and multiple bilateral pulmonary nodules neoplasm cannot be excluded 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
--- NOTE | 2019-03-13 16:57 | P.PN ---
Progress Note - Text Progress Note Date: 03/13/19 Chief Complaint: Cough Interval history: This is a pleasant 64-year-old patient of Dr. Almanzar. Long-standing smoker. She has had a cough for close to 3 weeks. Bringing up a lot of sputum yellow color. Has had some fever off and on. Decreased appetite, short of breath and wheezing. When he coughs he develops pain below the rib cage. Feeling tired rundown. Admitted for the same. The chest pain is having is only with coughing. Otherwise. Admitted with multilobar pneumonia, right lung mass with metastatic lymphadenopathy, acute COPD exacerbation Today-coughs significantly improved. Breathing better. Appetite much improved. is present. More cheerful. Up and about. Review of systems: Was done for constitutional, cardiovascular, GI, pulmonary. relevant finding as above Active Medications Albuterol/Ipratropium (Duoneb 0.5 Mg-3 Mg/3 Ml Soln) 3 ml INHALATION RT-Q4H PRN PRN Reason: shortness of breath Albuterol/Ipratropium (Duoneb 0.5 Mg-3 Mg/3 Ml Soln) 3 ml INHALATION RT-Q4H [facility] Last Admin: 03/13/19 15:41 Dose: 3 ml Documented by: Alprazolam (Xanax) 0.25 mg PO Q6HR PRN PRN Reason: Mild Anxiety Alprazolam (Xanax) 0.5 mg PO Q6HR PRN PRN Reason: Moderate Anxiety Last Admin: 03/12/19 22:45 Dose: 0.5 mg Documented by: Aspirin (Aspirin) 81 mg PO DAILY [facility] Last Admin: 03/13/19 08:19 Dose: 81 mg Documented by: Atorvastatin Calcium (Lipitor) 20 mg PO HS [facility] Azithromycin (Zithromax) 500 mg PO DAILY [facility] Last Admin: 03/13/19 08:19 Dose: 500 mg Documented by: Budesonide (Pulmicort) 1 mg INHALATION RT-BID [facility] Last Admin: 03/13/19 07:16 Dose: 1 mg Documented by: Heparin Sodium (Porcine) (Heparin) 5,000 unit SQ Q12HR [facility] Last Admin: 03/13/19 08:19 Dose: 5,000 unit Documented by: Ceftriaxone Sodium 1 gm/ (Sodium Chloride) 50 mls @ 100 mls/hr IVPB Q24HR [facility] Stop: 03/15/19 09:01 Last Admin: 03/13/19 08:19 Dose: 100 mls/hr Documented by: Insulin Aspart (Novolog) 0 unit SQ ACHS [facility]; Protocol Last Admin: 03/13/19 16:44 Dose: Not Given Documented by: Methylprednisolone Sodium Succinate (Solu-Medrol) 40 mg IV Q8H [facility] Last Admin: 03/13/19 13:14 Dose: 40 mg Documented by: Metoprolol Tartrate (Lopressor) 12.5 mg PO BID [facility] Last Admin: 03/13/19 08:19 Dose: 12.5 mg Documented by: Miscellaneous Information (Pneumonia Protocol Utilized) 1 each PO ONCE PRN PRN Reason: Per Protocol Nicotine (Habitrol 21mg/24hr Patch) 1 patch TRANSDERM DAILY [facility] Last Admin: 03/13/19 08:19 Dose: 1 patch Documented by: Nitroglycerin (Nitrostat) 0.4 mg SUBLINGUAL Q5M PRN PRN Reason: Chest Pain Physical examination: VITAL SIGNS: 99.2, 93, 16, 104/59, 92% room air GENERAL: sitting at the edge of bed, breathing improved EYES: Pupils equal. Conjunctiva palel. HEENT: External appearance of nose and ears normal, oral cavity grossly normal. NECK: JVD not raised; masses not palpable. HEART: First and second heart sounds are normal; no edema. LUNGS: Respiratory rate increased, diminished breath sounds ABDOMEN: Soft, nontender, liver spleen not palpable, no masses palpable. PSYCH: Alert and oriented x3; mood and affect less anxious. INVESTIGATIONS, reviewed in the clinical context: White count 8.8 hemoglobin 11.9 platelets. Eat potassium 4.4 but at creatinine 0.6 once Troponin I 0.013, 0.012 Influenza A and B both negative Albumin 3.1 EKG tracing personally reviewed by me-normal sinus rhythm Chest x-ray film personally reviewed by me-infiltrate multiple hyperinflation CT chest-negative for PE mass of multiple lymph nodes Assessment: -Multilobar pneumonia, possibly postobstructive pneumonia, suspected gram- negative organism, improving -Right lung mass with multiple lymph nodes involvement strongly suspicious of malignancy in a smoker -Primary osteoarthritis of the knees -Mild protein calorie malnutrition from decreased oral intake -Advanced COPD exacerbation acute in a smoker, improving -Chronic nicotine dependence patient cigarette smoker Plan: -Patient on IV ceftriaxone and Zithromax. IV steroids. Had a sore bronchoscopy tomorrow. Scaled back on IV steroids. Ambulating well. Discussed with patient and ..
[2019-03-13 17:01] LABS: Glucose,Whole Blood 135 mg/dL (75-99)
[2019-03-13 17:13] LABS: Glucose,Whole Blood 124 mg/dL (75-99)
[2019-03-13] MEDS: ALPRAZolam 0.5 MG TAB PO PRN (20:22)
[2019-03-13] MEDS: ATORVASTATIN 20 MG TAB PO SCH (20:22)
[2019-03-13] MEDS ORDERED: DILTIAZEM DRIP BOLUS FROM BAG 1 MG SOLN IV ONE (20:42)
[2019-03-13] MEDS ORDERED: DILTIAZEM 125 MG in SODIUM CHLORIDE 0.9% 100 ML IV SCH (21:00)
[2019-03-13 21:02] LABS: Glucose,Whole Blood 187 mg/dL (75-99)
[2019-03-14] MEDS: IPRATROPIUM-ALBUTEROL 3 ML NEB INHALATION SCH ×6 (04:15→23:52)
[2019-03-14] MEDS: INSULIN ASPART (NovoLOG) 100 UNIT/ML VIAL SQ SCH ×4 (06:10→22:42)
[2019-03-14 06:18] LABS: Glucose,Whole Blood 132 mg/dL (75-99)
[2019-03-14 06:49] LABS: HCT 34.4 % (39.0-53.0); HGB 11.6 gm/dL (13.0-17.5); MCH 27.5 pg (25.0-35.0); MCHC 33.6 g/dL (31.0-37.0); MCV 81.9 fL (80.0-100.0); Platelet Count 519 k/uL (150-450); RBC 4.21 m/uL (4.30-5.90); RDW 13.4 % (11.5-15.5); WBC 12.4 k/uL (3.8-10.6)
[2019-03-14 07:08] LABS: African American GFR (CKD) >90 (>60 ml/min/1.73 sqM); Anion Gap 7 mmol/L; Blood Urea Nitrogen 23 mg/dL (9-20); Calcium 8.9 mg/dL (8.4-10.2); Carbon Dioxide 27 mmol/L (22-30); Chloride 103 mmol/L (98-107); Glucose 123 mg/dL (74-99); Magnesium 2.1 mg/dL (1.6-2.3); Non-African American GFR(CKD) >90 (>60 ml/min/1.73 sqM); Potassium 5.2 mmol/L (3.5-5.1); Sodium 137 mmol/L (137-145)
[2019-03-14] MEDS: BUDESONIDE 1 MG/2 ML NEBU INHALATION SCH ×2 (07:26→20:48)
[2019-03-14] MEDS: methylPREDNISolone SOD SUCCI 40 MG/ML 1 ML VIAL IV SCH ×2 (08:34→20:08)
[2019-03-14] MEDS: METOPROLOL TARTRATE 12.5 MG TAB PO SCH ×2 (08:34→20:08)
[2019-03-14] MEDS: HEPARIN SODIUM,PORCINE 5,000 UNIT/ML 1 ML VIAL SQ SCH ×2 (08:34→20:08)
[2019-03-14] MEDS: ASPIRIN 81 MG PO SCH (08:34)
[2019-03-14] MEDS: NICOTINE 21MG/24HR PATCH TRANSDERM SCH (08:34)
[2019-03-14] MEDS: AZITHROMYCIN 500 MG TAB PO SCH (08:34)
--- NOTE | 2019-03-14 10:48 | PN ---
PROGRESS NOTE Mr. Santos had a bout of atrial fibrillation yesterday. This happened after he received a breathing treatment with some beta 1 stimulants. However, he is going for bronchoscopy today. He is back in sinus rhythm. Hemodynamically stable. No further chest pain. Vitals are stable. JVD is not evident. S1, S2 heard normally. Lungs reveal diminished air entry especially on the right side. Patient is maintaining sinus rhythm. I am not recommending anticoagulation now. If the arrhythmia recurs, he will be on anticoagulation, but for now workup for pulmonary issues are in progress. He probably has a lung CA and he is going to have a bronchoscopy by Dr. Lorenzana today. Prognosis remains guarded. MMODL / IJN: [id number] /
[2019-03-14 12:03] LABS: Glucose,Whole Blood 127 mg/dL (75-99)
[2019-03-14] MEDS: VERAPAMIL 40 MG TAB PO SCH ×3 (12:15→22:42)
[2019-03-14] MEDS ORDERED: KETAMINE 10 MG/ML 20 ML VIAL ONE (13:43)
[2019-03-14] MEDS ORDERED: MIDAZOLAM 2 MG/2 ML VIAL ONE (13:43)
[2019-03-14] MEDS ORDERED: LIDOCAINE 1% INJ 10MG/ML (20 ML MDV) ONE (13:43)
[2019-03-14] MEDS ORDERED: PROPOFOL 10 MG/ML 20 ML VIAL IV ONE (13:43)
[2019-03-14] MEDS ORDERED: LIDOCAINE 2% INJ 20 MG/ML INTRATRACH ONE (14:18)
[2019-03-14] MEDS ORDERED: IV FLUID CONTINUATION 1,000 ML IV ONE (14:21)
--- NOTE | 2019-03-14 16:15 | P.PN ---
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 Active smoking and nicotine abuse 03/14/2019, patient seen eval examined during the rounds labs reviewed medications reviewed care plan discussed, patient is a being scheduled for bronchoscopy later on today, overall breathing has improved now procedure explained to the patient and family at length 03/13/2019, patient seen eval examined labs reviewed medications reviewed computed tomography scan finding reviewed with the patient as well as his sister at length, patient is scheduled for bronchoscopy tomorrow procedure explained to patient along with side effects complications and benefits alternatives 03/12/2019, patient seen eval reexamined during the rounds labs reviewed medications reviewed care plan discussed with the patient and present at bedside, patient remains on antibiotics breathing treatments steroids, computed tomography scan of the chest has been reviewed findings discussed with the patient, patient has extensive bilateral lung nodules and masses in addition large right sided perihilar mass is present as well highly suspicious of neoplastic process patient could have a component of postobstructive pneumonia as well will continue the antibiotics plan to do bronchoscopy on This is a 64-year-old male who was seen eval examined in the ER, patient has three-week history of increased shortness breath cough and congestion and feeling of heaviness in the chest came into the hospital for further evaluation patient also has a long-standing history of COPD emphysema and smoker, he smoked about [id number]-year, admit x-ray suggestive of the right hilar masslike infiltrate Objective - Vital Signs Vital signs: Vital Signs Temp 97.6 F 03/14/19 12:00 Pulse 76 03/14/19 12:00 Resp 18 03/14/19 12:00 BP 111/70 03/14/19 12:00 Pulse Ox 92 L 03/14/19 12:00 Intake & Output 03/13/19 03/14/19 03/14/19 18:59 06:59 18:59 Intake Total 720 95 Balance 720 95 Weight 62.6 kg Intake: IV 95 Invasive Line 1 20 Oral 720 Other: Voiding Method Toilet Toilet Toilet Urinal Urinal Urinal # Voids 1 1 - Exam - Constitutional General appearance: average body habitus, disheveled, mild distress - EENT Eyes: EOMI, PERRLA, normal appearance ENT: normal oropharynx Ears: bilateral: normal - Neck Neck: normal ROM Carotids: bilateral: upstroke normal Thyroid: bilateral: normal size - Respiratory Respiratory: bilateral: diminished, wheezing (Fine expiratory) - Cardiovascular Rhythm: regular Heart sounds: normal: S1, S2 - Gastrointestinal General gastrointestinal: normal bowel sounds - Integumentary Integumentary: normal turgor - Neurologic Neurologic: CNII-XII intact - Musculoskeletal Musculoskeletal: gait normal, generalized weakness, strength equal bilaterally - Psychiatric Psychiatric: A&O x's 3, appropriate affect - Labs CBC & Chem 7: 03/14/19 06:12 03/14/19 06:12 Labs: Abnormal Lab Results - Last 24 Hours (Table) 03/13/19 03/13/19 03/13/19 Range/Units 16:44 17:00 21:01 WBC (3.8-10.6) k/uL RBC (4.30-5.90) m/uL Hgb (13.0-17.5) gm/dL Hct (39.0-53.0) % Plt Count (150-450) k/uL Potassium (3.5-5.1) mmol/L BUN (9-20) mg/dL Glucose (74-99) mg/dL POC Glucose (mg/dL) 135 H 124 H 187 H (75-99) mg/dL 03/14/19 03/14/19 03/14/19 Range/Units 06:12 06:12 06:16 WBC 12.4 H (3.8-10.6) k/uL RBC 4.21 L (4.30-5.90) m/uL Hgb 11.6 L (13.0-17.5) gm/dL Hct 34.4 L (39.0-53.0) % Plt Count 519 H (150-450) k/uL Potassium 5.2 H (3.5-5.1) mmol/L BUN 23 H (9-20) mg/dL Glucose 123 H (74-99) mg/dL POC Glucose (mg/dL) 132 H (75-99) mg/dL 03/14/19 Range/Units 12:02 WBC (3.8-10.6) k/uL RBC (4.30-5.90) m/uL Hgb (13.0-17.5) gm/dL Hct (39.0-53.0) % Plt Count (150-450) k/uL Potassium (3.5-5.1) mmol/L BUN (9-20) mg/dL Glucose (74-99) mg/dL POC Glucose (mg/dL) 127 H (75-99) mg/dL Microbiology - Last 24 Hours (Table) 03/11/19 11:58 Blood Culture - Preliminary Blood No Growth after 72 hours 03/12/19 07:29 Gram Stain - Final Sputum Sputum Culture - Final Assessment and Plan Assessment: Right perihilar pneumonia Right-sided hilar mass and multiple bilateral pulmonary nodules neoplasm cannot be excluded 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
--- NOTE | 2019-03-14 16:18 | P.PCN ---
Date of Procedure: 03/14/19 Preoperative Diagnosis: Pulmonary nodules bilateral and large right perihilar mass Postoperative Diagnosis: As above Procedure(s) Performed: Bronchoscopy, bronchial biopsy, bronchoalveolar lavage, bronchial brush of right sided bronchitis Anesthesia: MAC Surgeon: Gene Lorenzana Estimated Blood Loss (ml): 5 Condition: stable Disposition: floor Indications for Procedure: As above Operative Findings: As below Description of Procedure: Fiberoptic bronchoscope passed through the right nares the vocal cords were normal structure and function tip of the vocal cords tip of the scope was passed beyond the vocal cords into trachea which was normal left-sided was examined first with left upper lobe lingular lobe and left lower lobe along with normal subsegment, scope was taken to the right side right upper lobe was within normal limit however bronchus intermedius below the region of right upper lobe has extrinsic compression along with lumpy bumpy appearance of mucosa where bronchial biopsy brush as well as lavage was performed patient tolerated procedure well no complication noted
[2019-03-14 17:07] LABS: Glucose,Whole Blood 165 mg/dL (75-99)
[2019-03-14] MEDS: ATORVASTATIN 20 MG TAB PO SCH (20:08)
[2019-03-14 20:21] LABS: Glucose,Whole Blood 111 mg/dL (75-99)
--- NOTE | 2019-03-14 21:07 | P.PN ---
Progress Note - Text Progress Note Date: 03/14/19 Chief Complaint: Cough Interval history: This is a pleasant 64-year-old patient of Dr. Almanzar. Long-standing smoker. She has had a cough for close to 3 weeks. Bringing up a lot of sputum yellow color. Has had some fever off and on. Decreased appetite, short of breath and wheezing. When he coughs he develops pain below the rib cage. Feeling tired rundown. Admitted for the same. The chest pain is having is only with coughing. Otherwise. Admitted with multilobar pneumonia, right lung mass with metastatic lymphadenopathy, acute COPD exacerbation Today-status post bronchoscopy. Biopsies done. Feeling better. Several family members are present. Slight cough. Review of systems: Was done for constitutional, cardiovascular, GI, pulmonary. relevant finding as above Active Medications Albuterol/Ipratropium (Duoneb 0.5 Mg-3 Mg/3 Ml Soln) 3 ml INHALATION RT-Q4H PRN PRN Reason: shortness of breath Albuterol/Ipratropium (Duoneb 0.5 Mg-3 Mg/3 Ml Soln) 3 ml INHALATION RT-Q4H [facility] Last Admin: 03/14/19 20:47 Dose: 3 ml Documented by: Alprazolam (Xanax) 0.25 mg PO Q6HR PRN PRN Reason: Mild Anxiety Alprazolam (Xanax) 0.5 mg PO Q6HR PRN PRN Reason: Moderate Anxiety Last Admin: 03/13/19 20:22 Dose: 0.5 mg Documented by: Aspirin (Aspirin) 81 mg PO DAILY [facility] Last Admin: 03/14/19 08:34 Dose: Not Given Documented by: Atorvastatin Calcium (Lipitor) 20 mg PO HS [facility] Last Admin: 03/14/19 20:08 Dose: 20 mg Documented by: Azithromycin (Zithromax) 500 mg PO DAILY [facility] Last Admin: 03/14/19 08:34 Dose: Not Given Documented by: Budesonide (Pulmicort) 1 mg INHALATION RT-BID [facility] Last Admin: 03/14/19 20:48 Dose: 1 mg Documented by: Heparin Sodium (Porcine) (Heparin) 5,000 unit SQ Q12HR [facility] Last Admin: 03/14/19 20:08 Dose: 5,000 unit Documented by: Ceftriaxone Sodium 1 gm/ (Sodium Chloride) 50 mls @ 100 mls/hr IVPB Q24HR [facility] Stop: 03/15/19 09:01 Last Admin: 03/14/19 08:33 Dose: 100 mls/hr Documented by: Insulin Aspart (Novolog) 0 unit SQ ACHS [facility]; Protocol Last Admin: 03/14/19 17:10 Dose: 3 unit Documented by: Methylprednisolone Sodium Succinate (Solu-Medrol) 40 mg IV Q12H [facility] Last Admin: 03/14/19 20:08 Dose: 40 mg Documented by: Metoprolol Tartrate (Lopressor) 12.5 mg PO BID [facility] Last Admin: 03/14/19 20:08 Dose: 12.5 mg Documented by: Miscellaneous Information (Pneumonia Protocol Utilized) 1 each PO ONCE PRN PRN Reason: Per Protocol Nicotine (Habitrol 21mg/24hr Patch) 1 patch TRANSDERM DAILY [facility] Last Admin: 03/14/19 08:34 Dose: 1 patch Documented by: Nitroglycerin (Nitrostat) 0.4 mg SUBLINGUAL Q5M PRN PRN Reason: Chest Pain Verapamil HCl (Isoptin) 40 mg PO TID [facility] Last Admin: 03/14/19 16:34 Dose: 40 mg Documented by: Physical examination: VITAL SIGNS: 98.2, 67, 18, 11 8/59, 93% room air GENERAL: Sitting up, feeling improved EYES: Pupils equal. Conjunctiva palel. HEENT: External appearance of nose and ears normal, oral cavity grossly normal. NECK: JVD not raised; masses not palpable. HEART: First and second heart sounds are normal; no edema. LUNGS: Respiratory rate increased, diminished breath sounds ABDOMEN: Soft, nontender, liver spleen not palpable, no masses palpable. PSYCH: Alert and oriented x3; mood and affect less anxious. INVESTIGATIONS, reviewed in the clinical context: White count 12.4 hemoglobin 11.6 potassium 5.2 creatinine 0.67 Previous testing Troponin I 0.013, 0.012 Influenza A and B both negative Albumin 3.1 EKG tracing personally reviewed by me-normal sinus rhythm Chest x-ray film personally reviewed by me-infiltrate multiple hyperinflation CT chest-negative for PE mass of multiple lymph nodes Assessment: -Multilobar pneumonia, possibly postobstructive pneumonia, suspected gram- negative organism, improving -Right lung mass with multiple lymph nodes involvement strongly suspicious of malignancy in a smoker -Status post bronchoscopy, tissue biopsy taken -Primary osteoarthritis of the knees -Mild protein calorie malnutrition from decreased oral intake -Advanced COPD exacerbation acute in a smoker, improving -Chronic nicotine dependence patient cigarette smoker Plan: Care was discussed at length with the patient and several family members. At this point. Decided to discharge the patient home tomorrow. At the biopsy results come back. Then he can be admitted with Dr. Lorenzana from pulmonary and Dr. James from oncology. In the meantime we'll put a consultation to oncology for a preliminary consultation. But understanding that final decision for treatment to be offered after biopsies back. Also discussed with Dr. Jimmy Lorenzana from pulmonary. Total time spent was about 45 minutes with over 25 minutes of discussion
[2019-03-14] MEDS: ALPRAZolam 0.5 MG TAB PO PRN (22:42)
[2019-03-15] MEDS: IPRATROPIUM-ALBUTEROL 3 ML NEB INHALATION SCH ×4 (03:50→15:38)
[2019-03-15 06:16] LABS: Glucose,Whole Blood 111 mg/dL (75-99)
[2019-03-15 07:03] VITALS: RESP 18
[2019-03-15] MEDS: INSULIN ASPART (NovoLOG) 100 UNIT/ML VIAL SQ SCH ×2 (07:42→13:18)
[2019-03-15] MEDS: AZITHROMYCIN 500 MG TAB PO SCH (08:07)
[2019-03-15] MEDS: HEPARIN SODIUM,PORCINE 5,000 UNIT/ML 1 ML VIAL SQ SCH (08:07)
[2019-03-15] MEDS: ASPIRIN 81 MG PO SCH (08:07)
[2019-03-15] MEDS: METOPROLOL TARTRATE 12.5 MG TAB PO SCH (08:07)
[2019-03-15] MEDS: VERAPAMIL 40 MG TAB PO SCH (08:07)
[2019-03-15] MEDS: methylPREDNISolone SOD SUCCI 40 MG/ML 1 ML VIAL IV SCH (08:07)
[2019-03-15] MEDS: NICOTINE 21MG/24HR PATCH TRANSDERM SCH (08:08)
[2019-03-15] MEDS: BUDESONIDE 1 MG/2 ML NEBU INHALATION SCH (09:01)
[2019-03-15 10:33] VITALS: BP 108/65; TEMP 97.6
[2019-03-15 12:21] LABS: Glucose,Whole Blood 129 mg/dL (75-99)
[2019-03-15 12:24] VITALS: PULSE 76
--- NOTE | 2019-03-15 13:05 | PN ---
PROGRESS NOTE Mr. Santos is in and out of atrial fib but mostly is in sinus today. He has had a bronchoscopy performed. In view of this, he was not anticoagulated. He has a stage IV lung CA apparently. He is going to be seen by oncologist and from a cardiac standpoint, we will leave him on the current medications, maintaining sinus rhythm. He does not have any chest pain. He is a smoker with lung cancer. Vitals are stable. S1, S2 heard normally. Lungs reveal diminished air entry especially the right side. Abdomen and lower extremity exam is otherwise unchanged. Plan is to continue his current medical regimen and we will see him as needed from a cardiac standpoint. We are awaiting input from Oncology. MMODL / IJN: [id number] /
--- NOTE | 2019-03-15 15:52 | P.CONS ---
History of Present Illness - Reason for Consult Consult date: 03/15/19 Lung mass - History of Present Illness The patient is a 64-year-old white male with a long-standing history of smoking and known COPD. Over the past 3 weeks, the patient had been complaining of increased chest congestion, cough productive of clear to yellowish sputum, as well as some shortness of breath and malaise with slow progression. He was also complaining of some chest discomfort. He therefore came into the emergency room, where chest x-ray was found to be abnormal. He had a computed tomography scan of the chest on, that showed significant consolidation in the right hilar area, with additional nodules in the right lung, mediastinal adenopathy, left upper lobe opacity, as well as a 3.6 cm left adrenal nodule. He was therefore admitted for further management. The patient was seen by cardiology and pulmonary medicine. He underwent a bronchoscopy yesterday, with extrinsic compression noted in the bronchus intermedius region of the right upper lobe. Biopsies were performed at that time. The patient was feeling better with steroids, begin treatment an antibiotics Consult was therefore placed further evaluation and recommendations. He denied any prior history of malignancy. He has smoked between 1-2 packs a day since age 17. He also had cardiology evaluation during that admission with carotid Doppler, and echocardiogram which did not show any significant abnormality Review of Systems Constitutional: Reports fatigue, Reports malaise Eyes: denies blurred vision, denies pain Ears: deny: decreased hearing, ear discharge, earache, tinnitus Ears, nose, mouth and throat: Denies headache, Denies sore throat Cardiovascular: Reports dyspnea on exertion Respiratory: Reports congestion, Reports cough with sputum Gastrointestinal: Denies abdominal pain, Denies diarrhea, Denies nausea, Denies vomiting Genitourinary: Reports as per HPI Musculoskeletal: Reports as per HPI Integumentary: Denies pruritus, Denies rash Neurological: Reports weakness, Denies numbness Psychiatric: Denies anxiety, Denies depression Endocrine: Reports fatigue, Denies weight change Hematologic/Lymphatic: Reports as per HPI Past Medical History Past Medical History: No Reported History History of Any Multi-Drug Resistant Organisms: None Reported Past Surgical History: Orthopedic Surgery Additional Past Surgical History / Comment(s): hand Past Psychological History: No Psychological Hx Reported Smoking Status: Current every day smoker Past Alcohol Use History: None Reported Past Drug Use History: None Reported Medications and Allergies Home Medications Medication Instructions Recorded Confirmed Type Albuterol Sulfate [Albuterol 1 puff PO Q4-6H PRN #1 inhaler 03/15/19 Rx Sulfate Hfa] Aspirin 81 mg PO DAILY #30 chew 03/15/19 Rx Atorvastatin [Lipitor] 20 mg PO HS #30 tab 03/15/19 Rx Budesonide-Formot 160-4.5 Mcg 1 puff INHALATION BID #1 puff 03/15/19 Rx [Symbicort 160-4.5 Mcg Inhaler (Bulk)] Metoprolol Tartrate [Lopressor] 12.5 mg PO BID #60 tab 03/15/19 Rx Nicotine 21Mg/24Hr Patch [Habitrol] 1 patch TRANSDERM DAILY #14 patch 03/15/19 Rx Verapamil [Isoptin] 40 mg PO TID #90 tab 03/15/19 Rx predniSONE 10 mg PO DAILY #30 tab 03/15/19 Rx Allergies Allergy/AdvReac Type Severity Reaction Status Date / Time No Known Allergies Allergy Verified 03/11/19 11:47 Physical Exam Vitals: Vital Signs Temp Pulse Pulse Resp BP Pulse Ox 03/15/19 12:23 76 03/15/19 12:13 76 03/15/19 11:18 69 18 03/15/19 09:18 80 03/15/19 09:05 72 95 03/15/19 08:00 97.6 F 69 18 108/65 96 03/15/19 04:00 98.8 F 71 18 115/75 96 03/15/19 03:58 72 03/15/19 03:50 62 03/15/19 00:00 78 03/14/19 23:52 78 03/14/19 23:02 98.1 F 77 18 121/69 93 L 03/14/19 20:59 68 03/14/19 20:48 64 94 L 03/14/19 20:00 98.2 F 76 18 127/76 96 03/14/19 16:00 98.2 F 67 18 118/59 93 L Intake and Output 03/15/19 03/15/19 03/15/19 06:59 14:59 22:59 Intake Total 1340 Balance 1340 Intake: IV 20 Invasive Line 2 20 Oral 1320 Other: Voiding Method Toilet Toilet Urinal Urinal # Voids 1 Weight 61.9 kg - Constitutional General appearance: no acute distress - EENT Eyes: EOMI, PERRLA ENT: hearing grossly normal, normal oropharynx - Neck Neck: no lymphadenopathy - Respiratory Respiratory: bilateral: diminished (Suggestive of COPD), prolonged expiration - Cardiovascular Rhythm: regular Heart sounds: normal: S1, S2 - Gastrointestinal General gastrointestinal: normal bowel sounds, soft - Integumentary Integumentary: normal - Neurologic Neurologic: CNII-XII intact - Musculoskeletal Musculoskeletal: strength equal bilaterally - Psychiatric Psychiatric: A&O x's 3, appropriate affect Results CBC & Chem 7: 03/14/19 06:12 03/14/19 06:12 Labs: Abnormal Lab Results - Last 24 Hours (Table) 03/14/19 03/14/19 03/15/19 Range/Units 17:05 20:21 06:14 POC Glucose (mg/dL) 165 H 111 H 111 H (75-99) mg/dL 03/15/19 Range/Units 12:19 POC Glucose (mg/dL) 129 H (75-99) mg/dL Microbiology - Last 24 Hours (Table) 03/11/19 11:58 Blood Culture - Preliminary Blood No Growth after 96 hours 03/14/19 14:06 Gram Stain - Preliminary Bronchial Washings - Right Bronchial Washings Culture - Preliminary 03/14/19 14:06 Acid Fast Bacilli Culture - Preliminary Bronchial Washings - Right 03/14/19 14:06 Fungal Culture - Preliminary Bronchial Washings - Right Chest x-ray: report reviewed CT scan - chest: report reviewed Assessment and Plan (1) Mass of right lung Narrative/Plan: The computed tomography scan appears to indicate a probable right hilar mass, with other findings as noted the medications were discussed in detail with the patient and his family. This, in addition to bronchoscopic findings highly suspicious for malignancy with primary site in the right lung. At this time staging is not known, but computed tomography scan does indicate probable mediastinal sophie involvement. In addition there is also suspicious for more widespread involvement, with left upper lobe opacity, right lung nodules a left adrenal nodule. The patient will thus have additional staging studies with MRI of the brain, and PET scan as an outpatient. He will then be followed up in the office. By that time biopsy reports will also be available. Office will contact the patient to set up the above. Case discussed with the admitting service. He is okay to discharge from our standpoint Current Visit: Yes Status: Acute Code(s): R91.8 - OTHER NONSPECIFIC ABNORMAL FINDING OF LUNG FIELD SNOMED Code(s): 789706079 Plan: Defer to the admitting service and other consultants for management of his other medical problems
--- NOTE | 2019-03-17 23:43 | P.DS ---
Providers Date of admission: 03/11/19 11:36 Expected date of discharge: 03/15/19 Attending physician: Kofi Gore Consults: 03/11/19 11:43 Consult Physician Routine Consulting Provider: [facility] Consult Reason/Comments: CP, trending trops Do you want consulting provider notified?: Yes 03/11/19 11:49 Consult Physician Urgent Consulting Provider: Gene Lorenzana Consult Reason/Comments: Right perihilar infiltrate or mass, dyspnea Do you want consulting provider notified?: Yes 03/14/19 11:04 Consult Physician Urgent Consulting Provider: Zachery Cruz Consult Reason/Comments: chest pain Do you want consulting provider notified?: Already Contacted 03/14/19 16:39 Consult Physician Urgent Consulting Provider: Aiyana Gardiner Consult Reason/Comments: Lung mass Do you want consulting provider notified?: Yes Primary care physician: [facility] Course: Chief Complaint: Cough Interval history: This is a pleasant 64-year-old patient of Dr. Almanzar. Long-standing smoker. She has had a cough for close to 3 weeks. Bringing up a lot of sputum yellow color. Has had some fever off and on. Decreased appetite, short of breath and wheezing. When he coughs he develops pain below the rib cage. Feeling tired rundown. Admitted for the same. The chest pain is having is only with coughing. Otherwise. Admitted with multilobar pneumonia, right lung mass with metastatic lymphadenopathy, acute COPD exacerbation. Underwent bronchoscopy. Biopsies obtained. Results pending. Patient responded well to bronchodilators traverse antibiotics. Patient will follow-up with results and then decision. Accordingly. Patient feeling much better before discharge. Up and about. Breathing stable. Discharge statement Consultation: Dr. vinicio vera from oncology Dr. LEVI Cruz from cardiology Dr. Jimmy Lorenzana from pulmonary Physical examination: VITAL SIGNS: 97.6, 69, 18, 108/65, 96% on room air GENERAL: Sitting up, comfortable EYES: Pupils equal. Conjunctiva palel. HEENT: External appearance of nose and ears normal, oral cavity grossly normal. NECK: JVD not raised; masses not palpable. HEART: First and second heart sounds are normal; no edema. LUNGS: Respiratory rate normal, improved air entry ABDOMEN: Soft, nontender, liver spleen not palpable, no masses palpable. PSYCH: Alert and oriented x3; mood and affect less anxious. INVESTIGATIONS, reviewed in the clinical context: White count 12.4 hemoglobin 11.6 potassium 5.2 creatinine 0.67 Previous testing Troponin I 0.013, 0.012 Influenza A and B both negative Albumin 3.1 EKG tracing personally reviewed by me-normal sinus rhythm Chest x-ray film personally reviewed by me-infiltrate multiple hyperinflation CT chest-negative for PE mass of multiple lymph nodes Assessment: -Multilobar pneumonia, possibly postobstructive pneumonia, suspected gram- negative organism, improving -Right lung mass with multiple lymph nodes involvement strongly suspicious of malignancy in a smoker -Status post bronchoscopy, tissue biopsy taken -Primary osteoarthritis of the knees -Mild protein calorie malnutrition from decreased oral intake -Advanced COPD exacerbation acute in a smoker, improving -Chronic nicotine dependence patient cigarette smoker -Procedure-bronchoscopy Disposition: Home Plan - Discharge Summary Discharge Rx Participant: No New Discharge Prescriptions: New Albuterol Sulfate [Albuterol Sulfate Hfa] 1 puff PO Q4-6H PRN #1 inhaler PRN Reason: Wheezing Aspirin 81 mg PO DAILY #30 chew Nicotine 21Mg/24Hr Patch [Habitrol] 1 patch TRANSDERM DAILY #14 patch Verapamil [Isoptin] 40 mg PO TID #90 tab Atorvastatin [Lipitor] 20 mg PO HS #30 tab Metoprolol Tartrate [Lopressor] 12.5 mg PO BID #60 tab predniSONE 10 mg PO DAILY #30 tab Budesonide-Formot 160-4.5 Mcg [Symbicort 160-4.5 Mcg Inhaler (Bulk)] 1 puff INHALATION BID #1 puff Discharge Medication List Albuterol Sulfate [Albuterol Sulfate Hfa] 1 puff PO Q4-6H PRN #1 inhaler 03/15/19 [Rx] Aspirin 81 mg PO DAILY #30 chew 03/15/19 [Rx] Atorvastatin [Lipitor] 20 mg PO HS #30 tab 03/15/19 [Rx] Budesonide-Formot 160-4.5 Mcg [Symbicort 160-4.5 Mcg Inhaler (Bulk)] 1 puff INHALATION BID #1 puff 03/15/19 [Rx] Metoprolol Tartrate [Lopressor] 12.5 mg PO BID #60 tab 03/15/19 [Rx] Nicotine 21Mg/24Hr Patch [Habitrol] 1 patch TRANSDERM DAILY #14 patch 03/15/19 [Rx] Verapamil [Isoptin] 40 mg PO TID #90 tab 03/15/19 [Rx] predniSONE 10 mg PO DAILY #30 tab 03/15/19 [Rx] Follow up Appointment(s)/Referral(s): Charbel James MD [STAFF PHYSICIAN] - As Needed Dario Almanzar DO [Primary Care Provider] - 04/25/19 1:20 pm (New patient appointment. Please call for any cancellation appointments to get in sooner. Bring your insurance card, a photo ID and a list of your current medications. ) Gene Lorenzana MD [STAFF PHYSICIAN] - 1 Week (Pulmonary - left office to call with a follow up appointment. Dr. Lorenzana will review results of bronchoscopy with you at this time. If you do not hear from office by end of day on Monday, please call Monday for an appointment. ) Patient Instructions/Handouts: Pneumonia (DC) Discharge Disposition: HOME SELF-CARE
--- NOTE | 2019-03-20 16:46 | P.PN ---
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 Advised 03/14/2019, patient seen eval examined during the rounds labs reviewed medications reviewed care plan discussed, patient is a being scheduled for bronchoscopy later on today, overall breathing has improved now procedure explained to the patient and family at length 03/13/2019, patient seen eval examined labs reviewed medications reviewed computed tomography scan finding reviewed with the patient as well as his sister at length, patient is scheduled for bronchoscopy tomorrow procedure explained to patient along with side effects complications and benefits alternatives 03/12/2019, patient seen eval reexamined during the rounds labs reviewed medications reviewed care plan discussed with the patient and present at bedside, patient remains on antibiotics breathing treatments steroids, computed tomography scan of the chest has been reviewed findings discussed with the patient, patient has extensive bilateral lung nodules and masses in addition large right sided perihilar mass is present as well highly suspicious of neoplastic process patient could have a component of postobstructive pneumonia as well will continue the antibiotics plan to do bronchoscopy on This is a 64-year-old male who was seen eval examined in the ER, patient has three-week history of increased shortness breath cough and congestion and feeling of heaviness in the chest came into the hospital for further evaluation patient also has a long-standing history of COPD emphysema and smoker, he smoked about [id number]-year, admit x-ray suggestive of the right hilar masslike infiltrate Objective - Vital Signs Vital signs: Vital Signs Temp 97.6 F 03/15/19 08:00 Pulse 76 03/15/19 12:23 Resp 18 03/15/19 11:18 BP 108/65 03/15/19 08:00 Pulse Ox 95 03/15/19 09:05 - Exam - Constitutional General appearance: average body habitus, disheveled, mild distress - EENT Eyes: EOMI, PERRLA, normal appearance ENT: normal oropharynx Ears: bilateral: normal - Neck Neck: normal ROM Carotids: bilateral: upstroke normal Thyroid: bilateral: normal size - Respiratory Respiratory: bilateral: diminished, wheezing (Fine expiratory) - Cardiovascular Rhythm: regular Heart sounds: normal: S1, S2 - Gastrointestinal General gastrointestinal: normal bowel sounds - Integumentary Integumentary: normal turgor - Neurologic Neurologic: CNII-XII intact - Musculoskeletal Musculoskeletal: gait normal, generalized weakness, strength equal bilaterally - Psychiatric Psychiatric: A&O x's 3, appropriate affect - Labs CBC & Chem 7: 03/14/19 06:12 03/14/19 06:12 Assessment and Plan Assessment: Right perihilar pneumonia Right-sided hilar mass and multiple bilateral pulmonary nodules neoplasm cannot be excluded 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
== END 2019-03-15 15:37 | disposition home or self-care (01) | DRG 178 ==
LOC: EC 09:44 → 3SCARD 11:36
PROVIDERS: ADMIT Hospitalist; ATTEND Hospitalist
PROC: 0B9F8ZX Drainage of Right Lower Lung Lobe, Via Natural or Artificial Opening Endoscopic, Diagnostic (ICD-10-PCS; principal; 2019-03-14 07:30)
PROC: 0BD38ZX Extraction of Right Main Bronchus, Via Natural or Artificial Opening Endoscopic, Diagnostic (ICD-10-PCS; 2019-03-14 07:30)
DX: J15.6 Pneumonia due to other Gram-negative bacteria (principal); E44.1 Mild protein-calorie malnutrition; F17.210 Nicotine dependence, cigarettes, uncomplicated; E27.8 Other specified disorders of adrenal gland; I48.91 Unspecified atrial fibrillation; J43.9 Emphysema, unspecified; M17.0 Bilateral primary osteoarthritis of knee; R59.0 Localized enlarged lymph nodes; Z79.51 Long term (current) use of inhaled steroids; Z79.82 Long term (current) use of aspirin; Z79.899 Other long term (current) drug therapy; Z91.19 Patient's noncompliance with other medical treatment and regimen
CPT/HCPCS: 31623; 31624; 31625; 36415; 71046; 71275; 80048; 80053; 83605; 83735; 83880; 84484; 85025; 85027; 85610; 85730; 87040; 87070; 87102; 87116; 87205; 87206; 87252; 87496; 87498; 87502; 87529; 87541; 87634; 87798; 88104; 88108; 88305; 93005; 93306; 93880; 94640; 94760; 96365; 96366; 96375; 96376; 99285